=== PATIENT | male | born 1975 | race Two or more races ===

== ENCOUNTER 2016-12-29 10:28 | Emergency (ER) | payer SELFPAY ==
[~2016-12-29] VITALS: Ht 149.9 cm; Wt 47.6 kg
[2016-12-29 10:40] VITALS: BP 121/79
[2016-12-29] MEDS ORDERED: IBUPROFEN600 MG ORAL (10:46)
[2016-12-29] MEDS ORDERED: CARBAMIDE PEROX15 ML OT (10:46)
[2016-12-29 11:09] VITALS: BP 121/79
--- NOTE | 2017-01-01 07:11 | Emergency Room Report ---
History of Present Illness General Chief Complaint: Pain Source: Patient Present Illness HPI 41-year-old male presents ED complaining of left shoulder pain times one week. States that he slept on it in a strange way and woke up with pain. Notes pain to the left upper back, underneath the shoulder blade. 01/04, throbbing, nonradiating. Denies any neck pain or neck stiffness. Patient is also complaining of hearing difficulty x2 weeks. Notes difficulty in both years. Denies any pain. Denies any fevers or chills. Denies any cough. Denies any trauma to the ears. No other aggravating or relieving factors. Denies any other associated symptoms Allergies: Coded Allergies: No Known Allergies (Unverified , 12/29/16) Patient History Past Medical History: none Past Surgical History: none Pertinent Family History: none Social History: Denies: alcohol use, drug use, smoking Immunizations: UTD Reviewed Nursing Documentation: PMH: Agreed, PSxH: Agreed Review of Systems All Other Systems: negative except mentioned in HPI Physical Exam Vital Signs Date Time Temp Pulse Resp B/P Pulse Ox O2 Delivery O2 Flow Rate FiO2 12/29/16 10:35 98.1 88 14 121/79 98 Room Air Sp02 EP Interpretation: reviewed, normal General Appearance: no apparent distress, alert, GCS 15, non-toxic Head: normocephalic Eyes: bilateral eye PERRL, bilateral eye normal inspection ENT: normal ENT inspection, other - Bilateral TM cerumen impaction Neck: normal inspection Respiratory: chest non-tender, lungs clear, normal breath sounds, speaking full sentences Cardiovascular #1: regular rate, rhythm, no edema Gastrointestinal: normal inspection Rectal: deferred Genitourinary: no CVA tenderness Musculoskeletal: normal range of motion, tender - pain under L shoulder pain. full ROM L shoulder Neurologic: alert, oriented x3, responsive, motor strength/tone normal, sensory intact, speech normal Psychiatric: normal inspection Skin: normal inspection Lymphatic: normal inspection Medical Decision Making Diagnostic Impression: Primary Impression: Cerumen impaction Qualified Codes: H61.23 - Impacted cerumen, bilateral Additional Impression: Shoulder strain Qualified Codes: S46.912A - Strain of unspecified muscle, fascia and tendon at shoulder and upper arm level, left arm, initial encounter ER Course 41-year-old male presents ED complaining of left shoulder pain, bilateral ear difficulty hearing Differential-fracture, dislocation, strain, otitis media, otitis externa Patient placed on stretcher. After initial history physical exam reveals a middle-aged male in no acute distress. There is full range of motion to left shoulder with no signs of bruising or crepitus. There is some tenderness beneath the shoulder blades medially. Pain is muscular. No signs of trauma. Reassurance given On exam there is significant cerebellar impaction in bilateral ears. Likely the reason for his decreased hearing. Diagnoses-serum and impaction, shoulder strain Stable and discharged to home with prescriptions for Motrin,carbamide peroxide. Followup with PMD. Return to ED if symptoms recur or worsen Last Vital Signs Date Time Temp Pulse Resp B/P Pulse Ox O2 Delivery O2 Flow Rate FiO2 12/29/16 11:09 98.1 69 14 121/79 98 Room Air Status: improved Disposition: HOME, SELF-CARE Condition: Stable Scripts Carbamide Peroxide (CARBAMIDE PEROXIDE) 15 Ml Drops 1 DROP OT TWICE A DAY, #15 ML Prov: MARILIN REECE M.D. 12/29/16 Ibuprofen* (MOTRIN*) 600 Mg Tablet 600 MG ORAL Q8H Y for For Pain, #30 TAB 0 Refills Prov: MARILIN REECE M.D. 12/29/16 Referrals: NOT CHOSEN GUNNER/,REFERRING (PCP) Patient Instructions: MARILIN Trotter M.D. Jan 01, 2017 07:11
== END 2016-12-29 11:09 | disposition home or self-care (01) ==
LOC: EMR 10:47
DX: S46.912A Strain of unspecified muscle, fascia and tendon at shoulder and upper arm level, left arm, initial encounter (principal); H61.23 Impacted cerumen, bilateral; X58.XXXA Exposure to other specified factors, initial encounter; Y92.9 Unspecified place or not applicable
CPT/HCPCS: 99284